=== PATIENT | female | born 1950 | race Caucasian/White ===

== ENCOUNTER 2021-08-21 06:42 | Inpatient (IN) | payer MEDICARE ==
[~2021-08-21] VITALS: Ht 162.6 cm; Wt 65.8 kg
[2021-08-21 07:39] LABS: BASOPHILS % (AUTO) 0.4 % (0.0-2.0); EOSINOPHILS % (AUTO) 0.3 % (0.0-6.0); HEMATOCRIT 38 % (33-45); HEMOGLOBIN 12.8 g/dL (11.5-14.8); LYMPHOCYTES % (AUTO) 22.2 % (20.0-44.0); MEAN CORPUSCULAR HGB CONC 34 g/dl (31.0-36.0); MEAN CORPUSCULAR VOLUME 92 fL (82-100); MONOCYTES # (AUTO) 0.5 K/uL (0.1-1.30); NEUTROPHILS % (AUTO) 66.1 % (43.0-81.0); PLATELET COUNT (AUTO) 185 K/uL (150-450); RED BLOOD CELL COUNT(AUTO) 4.13 MIL/uL (4.0-5.2); WHITE BLOOD COUNT (AUTO) 4.6 K/uL (4.3-11.0)
[2021-08-21 08:33] LABS: CALCIUM, SERUM 8.6 mg/dL (8.5-10.1); CARBON DIOXIDE 28 mmol/L (21-32); CHLORIDE 101 mmol/L (98-107); CREATININE 0.9 mg/dL (0.6-1.3); GLUCOSE 126 mg/dL (74-106); POTASSIUM 3.9 mmol/L (3.5-5.1); SODIUM SERUM 135 mmol/L (136-145); UREA NITROGEN, BLOOD 12 mg/dL (7-18)
[2021-08-21 08:40] LABS: ALANINE AMINOTRANSFERASE 24 U/L (12-78); ALBUMIN 3.4 g/dL (3.4-5.0); ALKALINE PHOSPHATASE 92 U/L (46-116); ASPARTATE AMINOTRANSFERASE 30 U/L (15-37); BILIRUBIN,DIRECT 0.1 mg/dL (0.0-0.2); BILIRUBIN,TOTAL 0.2 mg/dL (0.2-1.0); TOTAL PROTEIN, SERUM 7.1 g/dL (6.4-8.2)
[2021-08-21 08:45] LABS: THYROID STIMULATING HORMONE 0.921 uIU/mL (0.358-3.74)
[2021-08-21] MEDS ORDERED: FAMO40TA7 PO (08:56)
[2021-08-21] MEDS ORDERED: HYDR12.55 PO (08:56)
[2021-08-21] MEDS ORDERED: CITA20TA16 PO (08:56)
[2021-08-21 08:58] LABS: SERUM AMMONIA < 11 umol/L (11-32)
[2021-08-21 09:16] LABS: ACETAMINOPHEN < 10 ug/ml (10-30); ALCOHOL, BLOOD < 3 mg/dL (0-0)
[2021-08-21 09:19] LABS: MAGNESIUM 2.2 mg/dL (1.8-2.4)
[2021-08-21] MEDS ORDERED: ACETAMINOPHEN ES 500 MG TABLET PO ONE (09:30)
[2021-08-21] MEDS ORDERED: ACETAMINOPHEN ES 500 MG TABLET ONE (09:42)
[2021-08-21 09:49] LABS: BILIRUBIN,URINE SMALL (NEGATIVE); COLOR,URINE YELLOW (YELLOW); LEUKOCYTE ESTERASE ,URINE NEGATIVE (NEGATIVE); NITRITE, URINE NEGATIVE (NEGATIVE); PH,URINE 5.5 (5.0-8.0); PROTEIN,URINE TRACE mg/dl (NEGATIVE); UGLUCOSE NEGATIVE (NEGATIVE); UROBILINOGEN,URINE 0.2 EU/dL (0.2)
[2021-08-21 10:20] LABS: BACTERIA,URINE Few /HPF (None Seen); MUCUS,URINE Few /LPF (None Seen); SQUAMOUS EPITHELIAL CELL,UR Few /HPF (None Seen); URINE AMORPHOUS URATE Moderate /HPF (None Seen); WBC,URINE NONE SEEN /HPF (0-3)
[2021-08-21] MEDS ORDERED: CEFTRIAXONE 1GM BAG (ER ONLY) 1 GM/50 ML PIGGYBACK IV ONE (11:00)
[2021-08-21] MEDS ORDERED: CEFTRIAXONE 1GM BAG (ER ONLY) 50 ML IV ONE (11:48)
[2021-08-21] MEDS ORDERED: ONDANSETRON HCL/PF 4 MG/2 ML VIAL IVP PRN (14:30)
[2021-08-21] MEDS ORDERED: ACETAMINOPHEN 325 MG TABLET PO PRN (14:30)
[2021-08-21] MEDS ORDERED: ZOLPIDEM TARTRATE 5 MG TABLET PO PRN (14:30)
[2021-08-21] MEDS ORDERED: Z GUARD REMEDY 4 OZ OINT TP PRN (14:30)
[2021-08-21] MEDS ORDERED: MAG HYDROX/AL HYDROX/SIMETH 30 ML UDC PO PRN (14:30)
[2021-08-21] MEDS ORDERED: MAGNESIUM HYDROXIDE 30 ML UDC PO PRN (14:30)
[2021-08-21] MEDS: FAMOTIDINE (20 MG) 20 MG TABLET PO SCH (17:00)
[2021-08-21] MEDS ORDERED: LORAZEPAM INJ 2 MG/ML VIAL IV ONE (19:30)
[2021-08-21 20:00] VITALS: BP 133/68
[2021-08-22] VITALS: BP 110/54
[2021-08-22 04:00] VITALS: BP 110/56
[2021-08-22 06:36] LABS: BASOPHILS % (AUTO) 0.3 % (0.0-2.0); EOSINOPHILS % (AUTO) 0.3 % (0.0-6.0); HEMATOCRIT 36 % (33-45); HEMOGLOBIN 12.3 g/dL (11.5-14.8); LYMPHOCYTES # (AUTO) 1.8 K/uL (0.8-4.8); LYMPHOCYTES % (AUTO) 37.4 % (20.0-44.0); MEAN CORPUSCULAR HGB CONC 35 g/dl (31.0-36.0); MEAN CORPUSCULAR VOLUME 90 fL (82-100); MONOCYTES # (AUTO) 0.6 K/uL (0.1-1.30); MONOCYTES % (AUTO) 11.9 % (2.0-12.0); NEUTROPHILS # (AUTO) 2.4 K/uL (1.8-8.9); NEUTROPHILS % (AUTO) 50.1 % (43.0-81.0); PLATELET COUNT (AUTO) 187 K/uL (150-450); RED BLOOD CELL COUNT(AUTO) 3.95 MIL/uL (4.0-5.2); WHITE BLOOD COUNT (AUTO) 4.8 K/uL (4.3-11.0)
[2021-08-22] MEDS ORDERED: SULF1TAB48 PO (07:41)
[2021-08-22 07:45] LABS: CALCIUM, SERUM 8.7 mg/dL (8.5-10.1); CREATININE 0.9 mg/dL (0.6-1.3); MAGNESIUM 2.2 mg/dL (1.8-2.4); PHOSPHORUS 3.7 mg/dL (2.5-4.9); POTASSIUM 3.3 mmol/L (3.5-5.1)
[2021-08-22 08:00] VITALS: BP 106/59
[2021-08-22] MEDS: FAMOTIDINE (20 MG) 20 MG TABLET PO SCH (08:50)
[2021-08-22 08:53] VITALS: BP 106/59
[2021-08-22] MEDS ORDERED: HYDROCHLOROTHIAZIDE 25 MG TABLET PO SCH (09:00)
[2021-08-22] MEDS ORDERED: CITALOPRAM HYDROBROMIDE 20 MG TABLET PO SCH (09:00)
[2021-08-22] MEDS ORDERED: POTASSIUM CHLORIDE 20 MEQ TAB.PRT.SR PO SCH (10:00)
[2021-08-22] MEDS ORDERED: CEFTRIAXONE 1 G in IV D5W 50 ML IV SCH (12:00)
== END 2021-08-22 15:45 | disposition home or self-care (01) | DRG 867 ==
LOC: ER 06:45 → TELE 13:47
PROVIDERS: ADMIT Family Medicine; ATTEND Family Medicine
DX: A69.20 Lyme disease, unspecified (principal); G93.41 Metabolic encephalopathy; N39.0 Urinary tract infection, site not specified; Z20.822 Contact with and (suspected) exposure to COVID-19; I10 Essential (primary) hypertension; Z79.899 Other long term (current) drug therapy; R73.9 Hyperglycemia, unspecified
CPT/HCPCS: 36415; 70450-TC; 70544-TC; 70551-TC; 71045-TC; 80048-TC; 80061-TC; 80076-TC; 81001; 82140-TC; 82962-TC; 83735-TC; 83880; 84100-TC; 84443-TC; 84484-TC; 85025-TC; 85730-TC; 87040-TC; 87081-TC; 93307-TC; C9803; G0378; G0480; J0696; J2060; J7050; J7060

== ENCOUNTER 2021-08-23 09:30 | Outpatient (CLI) | payer MEDICARE ==
[~2021-08-23 09:30] MED LIST: CITA20TA16 PO; FAMO40TA7 PO; HYDR12.55 PO; SULF1TAB48 PO
== END 2021-08-23 23:59 | disposition home or self-care (01) ==
LOC: MSC 09:30
PROVIDERS: ATTEND Internal Medicine
DX: L03.311 Cellulitis of abdominal wall (principal); N39.0 Urinary tract infection, site not specified; Z86.19 Personal history of other infectious and parasitic diseases; I10 Essential (primary) hypertension